=== PATIENT | male | born 1940 | race Caucasian/White ===

== ENCOUNTER 2017-05-31 10:39 | Day surgery (SDC) | payer MEDICARE, OTHER ==
[2017-05-30 11:06] VITALS: BMI 29.0
--- NOTE | 2017-05-30 11:57 | HP ---
HISTORY OF PRESENT ILLNESS: Mr. Spencer is a 76-year-old male who presents with right L4 and L5 numbness, tingling and pain. He has had these symptoms since 03/2017 when leaning forward to put on his shoes and felt a pop in his back. The pain is somewhat better with analgesics and sitting down and bending forward, but he is avoiding most activities because of the pain. The pain is made worse with walking and shifting his weight in the right hip and lifting weight. He has had mild weakness in the right tibialis anterior muscle and has had mild right foot drop when ambulating. He has not done any physical therapy or had injections in the spine so far. MRI of the lumbar spine at [facility]. REVIEW OF SYSTEMS: Ten-point review of systems completed and is otherwise negative unless stated in the above HPI. PAST MEDICAL HISTORY: Kidney stones. PAST SURGICAL HISTORY: Tonsillectomy, appendectomy, left knee replaced in 2014. Hospitalizations for surgeries. FAMILY HISTORY: Father is , diagnosed with diabetes. Mother is alive, diagnosed with heart disease. SOCIAL HISTORY: The patient is a half pack smoker for 20 years formerly. He retired from sales. He is and has adult children. MEDICATIONS: Taking Doucette 7.5/325 as needed orally q.6 hours. ALLERGIES: PENICILLIN. PHYSICAL EXAMINATION: HEENT: Normocephalic, atraumatic. Hearing intact. Moist mucous membranes. Trachea is midline. EYES: Pupils are equally and reactive to light. Extraocular muscles are intact. Sclerae is white, nonicteric. PSYCHIATRIC: Normal mood and affect. CARDIOVASCULAR/CARDIOPULMONARY: No cyanosis or clubbing noted. Intact pedal pulses bilaterally. MUSCULOSKELETAL: Lower extremity, 3/5 strength in the right tibialis anterior muscle. Sensory deficits on the right L4-L5 dermatome. Tender to palpation on the midline lumbar spine. RESPIRATORY: Even respirations, good effort in all lung carpio, sound clear, no wheezing or crackles. NEUROLOGIC: Cranial nerves II-XII are grossly intact. Speech is fluent. He answers my questions appropriately. The patient has antalgic gait and station. ASSESSMENT: 1. Lumbar radiculopathy. 2. Right foot drop. PLAN: Dr. Mario offered a laminectomy and microdiskectomy to relieve his right-sided leg pain and right foot drop. We discussed the risks, benefits, and possible complications of surgery and alternatives. The patient is fully understands the risk and is willing to proceed with the surgery. MTDD
[2017-05-31] MEDS ORDERED: Albumin 5% 0 ML ONE (11:05)
[2017-05-31] MEDS ORDERED: Vecuronium 10 MG VIAL ONE ×2 (11:05→16:48)
[2017-05-31] MEDS ORDERED: Famotidine/PF 20 mg/2ml Vial ONE (11:05)
[2017-05-31] MEDS ORDERED: Levofloxacin 500 mg/D5W 100 ml Premix Bag ONE (11:13)
[2017-05-31] MEDS ORDERED: Clindamycin/D5W 900 mg/50 ml Premix Bag ONE (11:14)
[2017-05-31 11:36] LABS: INR-International Normal Ratio 1.1; PTT 28.7 SEC (22.9-36.1); Prothrombin Time 13.9 SEC (12.0-14.7)
[2017-05-31] MEDS ORDERED: Thrombin 5000 UNITS/5 ML VIAL ONE (11:40)
[2017-05-31] MEDS ORDERED: Bacitracin Zinc Ointment 30 gm TUBE ONE (11:40)
[2017-05-31] MEDS ORDERED: Bupivacaine/Epinephrine 0.25% 30 ML VIAL ONE (11:40)
[2017-05-31] MEDS ORDERED: Sodium Chloride 0.9% 10 ML ONE (11:40)
[2017-05-31] MEDS ORDERED: Fentanyl 250 MCG/5 ML VIAL ONE (12:17)
[2017-05-31] MEDS ORDERED: Fentanyl 100 MCG/2 ML VIAL ONE (14:38)
--- NOTE | 2017-05-31 14:59 | OP ---
DATE OF PROCEDURE: 05/31/2017 SURGEON: Sheyla Mario M.D. FURNACE HAND: Lee Hunt PA-C. PREOPERATIVE INDICATION: Treat pain, prevent neurological deterioration. PREOPERATIVE DIAGNOSES: Right-sided intervertebral disk herniation L4-L5 with superior migration cau sing L4 and L5 radiculopathies. POSTOPERATIVE DIAGNOSES: Right-sided intervertebral disk herniation L4-L5 with superior migration ca using L4 and L5 radiculopathies. OPERATIVE PROCEDURE: Right hemilaminectomy, medial facetectomy, microdiskectomy L4-L5, operating torsten roscope. PREOPERATIVE MEDICATION: Clindamycin 900 mg IV, Levaquin 500 mg IV. DRAIN NUMBER: Zero. DRAIN TYPE: None. OPERATIVE DICTATION: The patient was brought to the operating room. General endotracheal anesthesia was induced. The patient was positioned prone on the operating table with his chest and hips suppor deondre by gel-filled chest rolls. A lateral fluoro radiograph was used to plan our incision. The lumba r skin was sterilely prepped and draped. We opened with a 10 blade knife and controlled bleeding wit h bipolar and monopolar cautery. We dissected down to the thoracodorsal fascia. We incised the fasc ia to the right of the midline and reflected the paraspinal muscles off the spinous process and matthew a of L4 and L5. We visualized the L3-4 facet joint as well and the inferior portion of the L3 lamina . A self-retaining retractor was placed and a lateral fluoro radiograph confirmed the levels upon wh ich we were operating. We then fashioned a hemilaminectomy at L4. We widened our laminectomy defect and performed medial facetectomy at L4-5. We have brought the operating microscope into the field. Under microscopic magnification using microsurgical techniques, we removed the yellow ligament at the L4-5 interspace and L3-4 as well. We identified the L4 and L5 nerve roots. All the way from the ax illa, the L4 nerve root down to the shoulder of the L5 nerve root. There was an extremely large inte rvertebral disk herniation in the ventral epidural space. This was stretching the thecal sac, the L4 nerve root, and the L5 nerve root. We gently retracted the thecal sac medially and protected all th e nerve roots and removed the disk herniation in a piecemeal fashion. Multiple large fragments of in tervertebral disks were removed from the ventral epidural space. The hole in the annulus through whi ch the disk had emanated came from the L4-5 interspace. We reached through the ligament into the int erspace and removed loose fragments of disk from the interspace. All the remaining disk was firmly a dherent to the endplates. We controlled ventral epidural bleeding with gentle bipolar cautery. We m cheryle sure a ball probe could pass through the lateral recess and out the foramen with the L4 and L5 ne rve roots without impingement. There was no remaining disk in the foramen. There was no disk ventra l to the epidural space or in the axilla of the L4 nerve root. There was no disk over the shoulder o f the L5 nerve root. We irrigated copiously with bacitracin irrigation. We waxed the bone edges and infused local anesthetic in the paraspinal muscles. We closed the wound in anatomic layers and we a pplied a sterile dressing. This was a clean case and no contamination.
[2017-05-31] MEDS ORDERED: PHENYLEPHRINE-NS 100 MCG/ML 10 ML SYRINGE ONE (16:48)
[2017-05-31] MEDS ORDERED: Lidocaine 1% PF 5 ML VIAL ONE (16:48)
[2017-05-31] MEDS ORDERED: Propofol 200 MG/20 ML VIAL ONE (16:48)
[2017-05-31] MEDS ORDERED: Dexamethasone 20 MG/5 ML VIAL ONE (16:48)
[2017-05-31] MEDS ORDERED: Ondansetron HCl/PF 4 MG/2 ML Vial ONE (16:48)
[2017-05-31] MEDS ORDERED: Glycopyrrolate 0.2 MG/ML 5 ML SYRINGE ONE ×2 (16:48)
[2017-05-31] MEDS ORDERED: ePHEDrine/0.9% NaCl/PF SYRINGE 50 mg/10 ml ONE (16:48)
[2017-05-31] MEDS ORDERED: Acetaminophen/Codeine 30-300mg Tablet ONE (16:59)
[2017-05-31] MEDS ORDERED: Tamsulosin HCl 0.4 MG CAP ONE (18:58)
== END 2017-05-31 20:56 | disposition home or self-care (01) ==
LOC: SDC 10:39
PROVIDERS: ATTEND Neurological Surgery
PROC: 01NB0ZZ Release Lumbar Nerve, Open Approach (ICD-10-PCS; principal; 2017-05-31)
PROC: 0ST20ZZ Resection of Lumbar Vertebral Disc, Open Approach (ICD-10-PCS; 2017-05-31)
DX: M51.16 Intervertebral disc disorders with radiculopathy, lumbar region (principal); M21.371 Foot drop, right foot; Z87.442 Personal history of urinary calculi; Z87.891 Personal history of nicotine dependence; Z79.899 Other long term (current) drug therapy; Z83.3 Family history of diabetes mellitus; Z82.49 Family history of ischemic heart disease and other diseases of the circulatory system; Z88.0 Allergy status to penicillin; Z88.8 Allergy status to other drugs, medicaments and biological substances; Z96.652 Presence of left artificial knee joint; Z90.49 Acquired absence of other specified parts of digestive tract; Z90.89 Acquired absence of other organs; Z98.49 Cataract extraction status, unspecified eye; Z98.890 Other specified postprocedural states
CPT/HCPCS: 36415; 76001; 85610; 85730; 93005; 93010; A4216; J0131; J1100; J1956; J2001; J2405; J2704; J3010; J3490; P9045; S0028